=== PATIENT | female | born 1995 | race Caucasian/White ===

== ENCOUNTER 2016-12-09 06:02 | Emergency (ER) | payer OTHER ==
[~2016-12-09] VITALS: Ht 165.1 cm; Wt 95.8 kg
[2016-12-09 06:08] VITALS: TEMP 36.8; Ht 165.1 cm; Wt 95.8 kg
[2016-12-09] MEDS ORDERED: SODIUM CHLORIDE 0.9% 1000ML 500 ML IV ONE (06:21)
[2016-12-09] MEDS ORDERED: ONDANSETRON INJ 2 MG/ML 2 ML VIAL IV STA (06:21)
[2016-12-09] MEDS ORDERED: MoRPHine SULFATE 10 MG/ML CARP/VIAL IV PRN (06:30)
[2016-12-09] MEDS ORDERED: IBUPROFEN 600 MG TAB PO STA (06:41)
--- NOTE | 2016-12-09 06:47 | EMERGENCY ROOM VISIT NOTE ---
History Report prepared by Damian: Andrzej Johnston Under the Supervision of: Dr. Mich Broussard M.D. First contact with patient: 06:36 Chief Complaint: KIDNEY STONE Stated Complaint: KIDNEY STONE MOVED History of Present Illness The patient is a 20 year old female who presents to the Emergency Room with complaints of persistent left sided flank pain that started 3.5 hours ago. The patient notes that the discomfort stated in her flank and radiated to her abdomen. The patient notes she has a history of 2 kidney stones and one has already been analyzed. Upon arriving to the ED, the patient was able to pass a small stone in her urine. She notes that most of her pain has been relieved at this time. She denies any other medical complaints at this time. Source of History: patient Onset: 3.5 hours ago Position: back (left side flank) Timing: other (persistent) Associated Symptoms: + abdominal pain (radiation to abdomen) Note: Denies: any other medical complaints at this time. Review of Systems All systems have been listed, reviewed, and are negative other than those previously mentioned. Please see Additional Medical History Sheet. Past Medical & Surgical Medical Problems: (1) Chronic abdominal pain Family History Cancer FHx: gallbladder disease Kidney disease Kidney stones Social History Smoking Status: Never Smoker Alcohol Use: none Marital Status: single Housing Status: lives with family Occupation Status: student Current/Historical Medications No Active Prescriptions or Reported Meds Allergies Coded Allergies: Pork (Verified Adverse Reaction, Intermediate, ABD CRAMPING, 12/09/16) Uncoded Allergies: CHICKEN (Adverse Reaction, Intermediate, ABD CRAMPING, 11/16/16) DAIRY (LACTOSE INTOLERANT) (Adverse Reaction, Intermediate, GI UPSET, 11/16) Physical Exam Vital Signs Date Time Temp Pulse Resp B/P Pulse Ox O2 Delivery O2 Flow Rate FiO2 12/09/16 09:10 97 16 122/82 97 12/09/16 06:08 36.8 95 18 124/82 98 Room Air Physical Exam GENERAL: Patient awake, alert, oriented x 3. Patient follows commands. Patient does not appear toxic. Patient is adequately hydrated and well- nourished. Patient appears to be in mild to moderate distress. SKIN: No erythema, pallor, cyanosis or rash HEENT: Normal head, pupils equal, reactive to light and accommodation. Neck: Without adenopathy, no neck vein distention. LUNGS: Clear to auscultation. No wheezes, no rales, no rhonchi. HEART: No murmurs. No gallops. No rubs ABDOMEN: No masses, no rebound, no hepatomegaly or splenomegaly. Vague left CVA tenderness. EXTREMITIES: No signs of trauma. No pedal or pretibial edema. No calf or thigh tenderness. NEUROLOGIC: Cranial nerves II-XII within normal limits. No gross motor sensory function deficits. Medical Decision & Procedures Laboratory Results Test 12/09/16 06:19 Urine Color RED Urine Appearance CLOUDY (CLEAR) Urine pH 6.0 (4.5-7.5) Urine Specific Gibson >= 1.030 (1.000-1.030) Urine Protein 2+ (NEG) Urine Glucose (UA) NEG (NEG) Urine Ketones NEG (NEG) Urine Occult Blood 3+ (NEG) Urine Nitrite NEG (NEG) Urine Bilirubin NEG (NEG) Urine Urobilinogen NEG (NEG) Urine Leukocyte Esterase NEG (NEG) Urine RBC >30 /hpf (0-4) Urine WBC 10-30 /hpf (0-5) Urine Epithelial Cells >30 /lpf (0-5) Urine Calcium Oxalate Crystals PRESENT (NONE PRSENT) Urine Bacteria 1+ (NEG) Urine Mucus PRESENT (NONE PRSENT) Laboratory results as stated above per my review. Medications Administered Medications (Trade) Dose Ordered Sig/Alessandra Route Start Time Stop Time Status Last Admin Dose Admin Ibuprofen (Motrin Tab) 600 mg NOW STAT PO 12/09/16 06:41 12/09/16 06:43 DC 12/09/16 07:01 600 MG ED Course 0636: Past medical records reviewed. The patient was evaluated in room A10. A complete history and physical examination was performed. 0621: Ordered Zofran Inj 4 mg IV, NSS 500 ml @ 999 mls/hr IV. 0630: Ordered Morphine Sulfate 6 mg IV/pain. 0641: Ordered Ibuprofen 600 mg PO. 0815: Upon reevaluation, the patient appeared to have improvement of her symptoms. I discussed today's findings with her. She verbalized agreement of the treatment plan. The patient was discharged home. Medical Decision Differential diagnoses include kidney stone, UTI, musculoskeletal pain, and pyelonephritis. The patient is here with flank pain. While here in the ED she passed what appears to be a 1-2 mm stone. The pain has since eased off. A urinalysis was obtained. Please see above. I do not believe the patient requires any further testing at this time. She does not need pain medication other than the ibuprofen. The patient is to drink extra fluids and continue ibuprofen as needed. Impression Primary Impression: Kidney stone Scribe Attestation The scribe's documentation has been prepared under my direction and personally reviewed by me in its entirety. I confirm that the note above accurately reflects all work, treatment, procedures, and medical decision making performed by me. Departure Information Dispostion Home / Self-Care Prescriptions No Active Prescriptions or Reported Meds Referrals Vinnie Benavidez M.D. (PCP) Patient Instructions A Signature Page, ED Stone Renal W Colic, My [facility] Additional Instructions 600 mg ibuprofen every 6 hours as needed for pain. Drink extra fluids. Follow-up with your family physician.
[2016-12-09 08:26] LABS: MANUAL MICROSCOPIC REQUIRED? YES; URINE APPEARANCE CLOUDY (CLEAR); URINE BILIRUBIN NEG (NEG); URINE COLOR RED; URINE NITRITE NEG (NEG); URINE SPECIFIC GRAVITY >= 1.030 (1.000-1.030); UROBILINOGEN NEG (NEG)
[2016-12-09 08:27] LABS: REVIEW REQ? NO
[2016-12-09 08:30] LABS: URINE MUCUS PRESENT (NONE PRSENT); URINE RBC >30 /hpf (0-4)
[2016-12-09 08:31] LABS: URINE BACTERIA 1+ (NEG)
[2016-12-09 08:32] LABS: ZZUR CULT IF INDIC CLEAN CATCH YES
[2016-12-09 09:10] VITALS: BP 122/82; PULSE 97; O2SAT 97
[2017-06-17] MEDS ORDERED: ASPI-390 PO (16:16)
== END 2016-12-09 09:10 | disposition home or self-care (01) ==
LOC: C.EDB 06:03 → C.EDA 09:10
DX: N20.0 Calculus of kidney (principal)

== ENCOUNTER → 2017-03-05 | Outpatient (CLI) | payer OTHER ==
[~2017-03-05] MED LIST: ASPI-390 PO; DOCU-94 PO; FLM4 PO; ONDA4TAB10 SL; OXYC-57 PO
== END | disposition home or self-care (01) ==
LOC: C.PAPS 10:23
PROVIDERS: ATTEND Obstetrics & Gynecology
DX: Z01.419 Encounter for gynecological examination (general) (routine) without abnormal findings (principal)

== ENCOUNTER → 2017-03-05 | Outpatient (CLI) | payer OTHER ==
[2017-03-09 00:01] LABS: CHLAMYDIA TRACH RNA*** NOT DETECTED (NOT DETECTED); GC (NEIS GONORRHOEAE)RNA** NOT DETECTED (NOT DETECTED)
== END | disposition home or self-care (01) ==
LOC: C.LABSPEC 17:46
PROVIDERS: ATTEND Obstetrics & Gynecology
DX: Z11.3 Encounter for screening for infections with a predominantly sexual mode of transmission (principal)

== ENCOUNTER → 2017-03-24 | Outpatient (CLI) | payer OTHER ==
[2017-03-24 18:40] LABS: BASO % 0.5 %; BASO ABS # 0.05 K/uL (0-0.2); COMPLETE YES; EOS % 2.2 %; HEMATOCRIT 41.4 % (37-47); IG% 0.1 %; LYMPH % 36.2 %; LYMPH ABS # 3.32 K/uL (1.2-3.4); MEAN CELL VOLUME 92.2 fL (80-100); MEAN CORPUSCULAR HEMOGLOBIN 31.6 pg (25-34); MEAN CORPUSCULAR HGB CONC 34.3 g/dl (32-36); MEAN PLATELET VOLUME 9.4 fL (7.4-10.4); MONO % 6.1 %; NEUT % 54.9 %; PLATELET COUNT 315 K/uL (130-400); RED BLOOD COUNT 4.49 M/uL (4.2-5.4); WHITE BLOOD COUNT 9.18 K/uL (4.8-10.8)
[2017-03-24 19:08] LABS: BLOOD UREA NITROGEN 16 mg/dl (7-18); CALCIUM 9.3 mg/dl (8.5-10.1); CARBON DIOXIDE 29 mmol/L (21-32); CHLORIDE 109 mmol/L (98-107); CREATININE 0.85 mg/dl (0.60-1.20); GLUCOSE 86 mg/dl (70-99); POTASSIUM 4.3 mmol/L (3.5-5.1); SODIUM 141 mmol/L (136-145)
--- NOTE | 2017-03-24 19:10 | DIAGNOSTIC IMAGING REPORT ---
KUB HISTORY: Generalized abdominal pain. COMPARISON: Abdomen and pelvis CT 10/21/2016. FINDINGS: The bowel gas pattern is unremarkable. There are no dilated loops of small bowel to suggest an obstruction. No renal calculi. However, there is a new 6 mm calcification between the left L1 and L2 transverse processes. This is consistent with a left ureteropelvic junction stone. No pneumoperitoneum or pneumatosis. IMPRESSION: A new 6 mm calcification between the left L1 and L2 transverse processes consistent with a left ureteropelvic junction stone. Electronically signed by: Jeff Wolff M.D. 03/24/2017 7:08 PM Dictated Date/Time: 03/24/2017 7:05 PM
[2017-03-24 19:31] LABS: URINE APPEARANCE CLOUDY (CLEAR); URINE BILIRUBIN NEG (NEG); URINE COLOR YELLOW; URINE EPITHELIAL CELL AUTO >30 /lpf (0-5); URINE NITRITE NEG (NEG); URINE PH 6.5 (4.5-7.5); URINE SPECIFIC GRAVITY 1.027 (1.000-1.030); UROBILINOGEN NEG (NEG); ZZUR CULT IF INDIC CLEAN CATCH YES
[2017-03-24 19:37] LABS: MANUAL MICROSCOPIC REQUIRED? NO; REVIEW REQ? NO
== END | disposition home or self-care (01) ==
LOC: C.LAB 17:34
PROVIDERS: ATTEND Nurse Practitioner
DX: R10.9 Unspecified abdominal pain (principal)

== ENCOUNTER → 2017-03-25 | Outpatient (CLI) | payer OTHER ==
--- NOTE | 2017-03-25 09:47 | DIAGNOSTIC IMAGING REPORT ---
CT OF THE ABDOMEN AND PELVIS WITHOUT CONTRAST CLINICAL HISTORY: Left flank pain. COMPARISON STUDY: CT of the abdomen and pelvis October 21, 2016 and KUB March 24, 2017. TECHNIQUE: Axial images of the abdomen and pelvis were obtained without IV contrast. Images were reviewed in the axial, sagittal, and coronal planes. FINDINGS: There has been minimal distal migration of the 6 mm proximal left ureteral calculus since KUB of March 24, 2017. There is mild left hydronephrosis. A few small right renal calculi measure up to 2 mm. Evaluation of the remainder of the abdomen and pelvis is suboptimal as unenhanced exam. Unenhanced images of liver, spleen, adrenal glands and pancreas are normal. There is no evidence for a bowel obstruction. The appendix is normal. There is no lymphadenopathy or ascites. Skeletal structures are unremarkable. IMPRESSION: 1. Mild left hydronephrosis due to a 6 mm proximal left ureteral calculus. Minimal distal migration of this calculus since KUB of March 24, 2017. 2. Two small right renal calculi which measure up to 2 mm. Electronically signed by: Riley Nguyen M.D. 03/25/2017 9:46 AM Dictated Date/Time: 03/25/2017 9:41 AM
== END | disposition home or self-care (01) ==
LOC: C.CTS 09:24
PROVIDERS: ATTEND Nurse Practitioner
DX: R10.9 Unspecified abdominal pain (principal); Z87.442 Personal history of urinary calculi; N13.30 Unspecified hydronephrosis

== ENCOUNTER 2017-06-14 02:56 | Observation (INO) | payer OTHER ==
[~2017-06-14] VITALS: Ht 165.1 cm; Wt 100.2 kg
[2017-06-14] MEDS ORDERED: ONDANSETRON INJ 2 MG/ML 2 ML VIAL IV STA (03:08)
[2017-06-14] MEDS ORDERED: SODIUM CHLORIDE 0.9% 1000ML 1,000 ML IV STA ×2 (03:08→06:08)
[2017-06-14] MEDS: MoRPHine SULFATE 4 MG/ML 1 ML CARP\\VIAL IV PRN ×2 (03:28→04:04)
--- NOTE | 2017-06-14 03:31 | EMERGENCY ROOM VISIT NOTE ---
History Report prepared by Damian: Shila Corona Under the Supervision of: Dr. Jaswinder Beach D.O. First contact with patient: 03:05 Chief Complaint: KIDNEY STONE Stated Complaint: KIDNEY STONE History of Present Illness The patient is a 21 year old female who presents to the Emergency Room with complaints of persistent left flank pain starting 0200 today. She currently rates her discomfort as a 10/10 in severity. The patient has a history of kidney stones. She did not follow with urology after her first kidney stone. The pain resolved after her first stone. She has not taken anything for her pain. She reports left sided abdominal pain, nausea, and vomiting. She denies any hematuria, fever, or chills. Her last menstrual period was 2 weeks ago. It was later than normal. She denies any other medical problems. Source of History: patient Onset: 199 today Position: other (left flank) Symptom Intensity: 10/10 Quality: other (pain) Timing: other (persistent) Associated Symptoms: + nausea, + vomiting, + abdominal pain, No fevers, No chills Note: Pt denies hematuria. Review of Systems See HPI for pertinent positives & negatives. A total of 10 systems reviewed and were otherwise negative. Past Medical & Surgical Medical Problems: (1) Chronic abdominal pain (2) Hydronephrosis due to obstruction of ureter (3) Kidney stone (4) Renal colic on left side Family History Cancer FHx: gallbladder disease Kidney disease Kidney stones Social History Smoking Status: Never Smoker Alcohol Use: none Marital Status: single Housing Status: lives with family Occupation Status: student Current/Historical Medications No Active Prescriptions or Reported Meds Allergies Coded Allergies: Lactose. (Verified Allergy, Unknown, GI SYMPTOMS, 06/14/17) Pork (Verified Adverse Reaction, Intermediate, ABD CRAMPING, 06/14/17) Uncoded Allergies: CHICKEN (Adverse Reaction, Intermediate, ABD CRAMPING, 11/16/16) Physical Exam Vital Signs Date Time Temp Pulse Resp B/P (MAP) Pulse Ox O2 Delivery O2 Flow Rate FiO2 06/14/17 06:08 93 16 126/83 97 Room Air 06/14/17 03:00 104 24 132/84 98 Room Air Physical Exam GENERAL: Patient is awake, alert, very anxious and uncomfortable appearing, appears to be in significant pain. EYES: The conjunctivae are clear. The pupils are round and reactive. EARS, NOSE, MOUTH AND THROAT: The nose is without any evidence of any deformity. Mucous membranes are moist tongue is midline NECK: The neck is nontender and supple. RESPIRATORY: Normal respiratory effort is noted there is no evidence of wheezing rhonchi or rales CARDIOVASCULAR: Regular rate and rhythm noted there no murmurs rubs or gallops normal S1 normal S2 GASTROINTESTINAL: The abdomen is mildly distended, but soft. Left sided tenderness to palpation, no guarding or rigidity. BACK: No midline tenderness, right CVA tenderness noted to percussion. MUSCULOSKELETAL/EXTREMITIES: There is no evidence of gross deformity full range of motion is noted in the hips and shoulders SKIN: There is no obvious evidence of any rash. There are no petechiae, pallor or cyanosis noted. NEUROLOGIC: Patient is awake alert and oriented x3 Medical Decision & Procedures ER Provider Diagnostic Interpretation: X-ray results as stated below per interpretation by me. KUB X-ray: Increased fecal load noted in the right colon, no signs of obstruction, nonspecific bowel gas pattern, calcification noted over the left psoas adjacent to the L4 L5 disc space. Ultrasound of the retroperitoneum was obtained in the emergency department. Partners reviewed. Preliminary Findings Only See Final Report For Complete Findings US RENAL: Mild left-sided hydronephrosis with the proximal ureter mildly dilated. No obstructing lesion is identified. The mid to distal left ureter was not visualized. Consider CT abdomen and pelvis to exclude obstructing lesion. The right kidney is unremarkable. Bilateral ureteral jets were visualized. The urinary bladder is unremarkable. Radiologist: Preston Glover MD Study ready at 05:06 and initial results transmitted at 05:27 Laboratory Results 06/14/17 03:30 Red Blood Count 4.34, Mean Corpuscular Volume 89.2, Mean Corpuscular Hemoglobin 31.3, Mean Corpuscular Hemoglobin Concent 35.1, Mean Platelet Volume 9.3, Neutrophils (%) (Auto) 47.9, Lymphocytes (%) (Auto) 41.4, Monocytes (%) (Auto) 8.4, Eosinophils (%) (Auto) 1.8, Basophils (%) (Auto) 0.3, Neutrophils # (Auto) 5.47, Lymphocytes # (Auto) 4.71, Monocytes # (Auto) 0.96, Eosinophils # (Auto) 0.20, Basophils # (Auto) 0.03 06/14/17 03:30 Test 06/14/17 03:30 White Blood Count 11.39 K/uL (4.8-10.8) Red Blood Count 4.34 M/uL (4.2-5.4) Hemoglobin 13.6 g/dL (12.0-16.0) Hematocrit 38.7 % (37-47) Mean Corpuscular Volume 89.2 fL (80-100) Mean Corpuscular Hemoglobin 31.3 pg (25-34) Mean Corpuscular Hemoglobin Concent 35.1 g/dl (32-36) Platelet Count 241 K/uL (130-400) Mean Platelet Volume 9.3 fL (7.4-10.4) Neutrophils (%) (Auto) 47.9 % Lymphocytes (%) (Auto) 41.4 % Monocytes (%) (Auto) 8.4 % Eosinophils (%) (Auto) 1.8 % Basophils (%) (Auto) 0.3 % Neutrophils # (Auto) 5.47 K/uL (1.4-6.5) Lymphocytes # (Auto) 4.71 K/uL (1.2-3.4) Monocytes # (Auto) 0.96 K/uL (0.11-0.59) Eosinophils # (Auto) 0.20 K/uL (0-0.5) Basophils # (Auto) 0.03 K/uL (0-0.2) RDW Standard Deviation 38.2 fL (36.4-46.3) RDW Coefficient of Variation 11.8 % (11.5-14.5) Immature Granulocyte % (Auto) 0.2 % Immature Granulocyte # (Auto) 0.02 K/uL (0.00-0.02) Anion Gap 8.0 mmol/L (3-11) Est Creatinine Clear Calc Drug Dose 142.9 ml/min Estimated GFR () 136.5 Estimated GFR (Non- 117.7 BUN/Creatinine Ratio 17.4 (10-20) Calcium Level 9.2 mg/dl (8.5-10.1) Total Bilirubin 0.3 mg/dl (0.2-1) Direct Bilirubin < 0.1 mg/dl (0-0.2) Aspartate Amino Transf (AST/SGOT) 10 U/L (15-37) Alanine Aminotransferase (ALT/SGPT) 25 U/L (12-78) Alkaline Phosphatase 80 U/L (45-117) Total Protein 7.4 gm/dl (6.4-8.2) Albumin 3.8 gm/dl (3.4-5.0) Lipase 270 U/L (73-393) Human Chorionic Gonadotropin, Qual NEG (NEG) Laboratory results per my review. Medications Administered Medications (Trade) Dose Ordered Sig/Alessandra Route Start Time Stop Time Status Last Admin Dose Admin Sodium Chloride 1,000 ml @ 999 mls/hr Q1H1M STAT IV 06/14/17 03:08 06/14/17 04:08 DC 06/14/17 03:28 999 MLS/HR Ondansetron HCl (Zofran Inj) 4 mg NOW STAT IV 06/14/17 03:08 06/14/17 03:10 DC 06/14/17 03:28 4 MG Morphine Sulfate (MoRPHine SULFATE INJ) 4 mg Q15M PRN IV 06/14/17 03:15 06/28/17 03:14 06/14/17 04:04 4 MG Sodium Chloride 1,000 ml @ 999 mls/hr Q1H1M STAT IV 06/14/17 06:08 06/14/17 07:08 DC 06/14/17 06:47 999 MLS/HR ED Course 0307: The patient was evaluated in room A4B. A complete history and physical examination were performed. 0308: Zofran Inj 4 mg IV, NSS 1000 ml @ 999 mls/hr IV. 0315: Morphine Sulfate 4 mg IV. 0539: Upon reevaluation, the patient is stable. I discussed results and treatment plan with her. She verbalizes agreement and understanding. The patient will be evaluated for further management and care. 0546: I discussed the patient's case with Dr. Cruz, [facility] hospitalist. The patient will be evaluated for further management. Medical Decision Prior records/ancillary studies reviewed. Triage Nursing notes reviewed. Additional history obtained from the family. The patient's history was concerning for left flank pain. Differential diagnosis: Etiologies such as renal colic, appendicitis, diverticulitis, mesenteric ischemia, aortic pathology, infections, inflammatory bowel disease, PUD, biliary pathology, UTI, as well as others were entertained. Medication Reconciliation: I attest that I have personally reviewed the patient' s current medications list. Blood pressure screening: Patient was found to have normal blood pressure on screening and does not require follow-up. The patient is a 21-year-old female who presented to the emergency department with severe left flank pain. The patient was seen in our facility 2 times over the last 12 months for similar episodes. She's had 2 CTs since last fall. She was known to have a proximal left ureteral calculus which was 6 millimeters. She states that she was supposed to follow-up with urology but did not follow- up as scheduled. The patient has very severe pain at this time. Ultrasound did show some hydronephrosis on the left and the x-ray I felt was consistent with a calcification along the left so as which could be consistent with the previously noted calculus. The patient was treated with IV fluids IV pain medicine and IV antiemetics. On subsequent reevaluation she was only slightly improved. For this reason I discussed her case with the on-call [facility] hospitalist. They've agreed to evaluate the patient in the emergency department for further management and disposition. I discussed the patient's laboratory and radiographic studies with her. Consults Time Called: 0541 Consulting Physician: Dr. Cruz [facility] hospitalist Returned Call: [phone] I discussed the patient's case with him. The patient will be evaluated for further management. Impression Primary Impression: Kidney stone on left side Additional Impressions: Hydronephrosis, left Intractable pain Scribe Attestation The scribe's documentation has been prepared under my direction and personally reviewed by me in its entirety. I confirm that the note above accurately reflects all work, treatment, procedures, and medical decision making performed by me. Departure Information Dispostion Being Evaluated By Hospitalist Prescriptions No Active Prescriptions or Reported Meds Referrals No Doctor, Assigned (PCP) Patient Instructions My [facility] Problem Qualifiers
[2017-06-14 03:38] LABS: BASO % 0.3 %; BASO ABS # 0.03 K/uL (0-0.2); COMPLETE YES; EOS % 1.8 %; HEMATOCRIT 38.7 % (37-47); IG% 0.2 %; LYMPH % 41.4 %; LYMPH ABS # 4.71 K/uL (1.2-3.4); MEAN CELL VOLUME 89.2 fL (80-100); MEAN CORPUSCULAR HEMOGLOBIN 31.3 pg (25-34); MEAN CORPUSCULAR HGB CONC 35.1 g/dl (32-36); MEAN PLATELET VOLUME 9.3 fL (7.4-10.4); MONO % 8.4 %; NEUT % 47.9 %; PLATELET COUNT 241 K/uL (130-400); RED BLOOD COUNT 4.34 M/uL (4.2-5.4); WHITE BLOOD COUNT 11.39 K/uL (4.8-10.8)
[2017-06-14 04:00] LABS: ALT/SGPT 25 U/L (12-78); AST/SGOT 10 U/L (15-37); BLOOD UREA NITROGEN 13 mg/dl (7-18); BUN/CREATININE RATIO 17.4 (10-20); CALCIUM 9.2 mg/dl (8.5-10.1); CARBON DIOXIDE 26 mmol/L (21-32); CHLORIDE 109 mmol/L (98-107); CREATININE 0.73 mg/dl (0.60-1.20); GLUCOSE 91 mg/dl (70-99); POTASSIUM 3.6 mmol/L (3.5-5.1); SODIUM 143 mmol/L (136-145)
[2017-06-14 04:03] LABS: ALKALINE PHOSPHATASE 80 U/L (45-117)
[2017-06-14 04:22] LABS: PREG INTERNAL NEGATIVE QC NEG CLEAR BACKGROUND; PREG INTERNAL POSITIVE QC POS CONTROL LINE
--- NOTE | 2017-06-14 06:35 | DIAGNOSTIC IMAGING REPORT ---
KUB HISTORY:21 yearsFemaleABDOMINAL PAIN/with history of kidney stones. COMPARISON: Renal ultrasound of same day, KUB radiograph 03/24/2017 TECHNIQUE: KUB radiograph FINDINGS: There is a 6 mm linear opacity within the expected region of the mid left ureter at the level of L4-L5. This appears similar to the previously noted calculus on the left which was present at L2-L3 on study dated 03/24/2017. No additional urolith is identified. Moderate volume of formed stool is seen within the right hemicolon. No fracture. IMPRESSION: 6 mm opacity at the level of L4-L5 likely correlates with a mid left ureteral calculus. The above report was generated using voice recognition software. It may contain grammatical, syntax or spelling errors. Electronically signed by: Chapo Mac M.D. 06/14/2017 6:33 AM Dictated Date/Time: 06/14/2017 6:29 AM
--- NOTE | 2017-06-14 06:50 | DIAGNOSTIC IMAGING REPORT ---
CT SCAN OF THE ABDOMEN AND PELVIS WITHOUT CONTRAST CLINICAL HISTORY: Left flank pain COMPARISON STUDY: 03/25/2017 TECHNIQUE: CT scan of the abdomen and pelvis was performed from the lung bases to the proximal femurs. Images are reviewed in the axial, sagittal, and coronal planes. IV contrast was not administered for this examination. CT DOSE: 764.97 mGy.cm FINDINGS: Lower chest: The heart is normal in size and configuration, without pericardial effusion. The lung bases and pleural spaces are clear. Liver: The unenhanced liver is normal in size, contour, and attenuation. There is no intrahepatic biliary ductal dilatation. Gallbladder: Unremarkable. Spleen: Normal in size and attenuation. Pancreas: Unremarkable. Adrenal glands: Unremarkable. Kidneys: There is a 2.5 located the L3-4 level. Mm nonobstructing upper pole right renal calculus. There is mild left-sided hydronephrosis. There is left-sided perinephric edema. There is left-sided periureteral edema. There is a 4 mm obstructing proximal left ureteral calculus Bowel: There are no transition zones indicate bowel obstruction. The appendix appears normal. There is no acute diverticulitis. Peritoneum: There is no intraperitoneal free air or abdominal ascites. Vasculature: The abdominal aorta is normal in course and caliber. Adenopathy: None. Pelvic viscera: The bladder, and pelvic viscera are unremarkable. Skeletal structures: No destructive osseous lesions are seen. IMPRESSION: 1. 4 mm obstructing proximal left ureteral calculus 2. Nonobstructing 2.5 mm right renal calculus 3. No evidence of bowel obstruction. No evidence of free air. Electronically signed by: Cruz Stewart M.D. 06/14/2017 6:48 AM Dictated Date/Time: 06/14/2017 6:45 AM
--- NOTE | 2017-06-14 06:58 | DIAGNOSTIC IMAGING REPORT ---
EXAMINATION: RENAL ULTRASOUND CLINICAL HISTORY: left flank pain COMPARISON STUDY: CT scan dated 06/14/2017 FINDINGS: The right kidney measures 11 cm. The left kidney measures 10.8 cm. There is mild to moderate left-sided hydronephrosis There are no renal masses. No bladder abnormalities are visualized. Bilateral ureteral jets were visualized. IMPRESSION : Mild to moderate left-sided hydronephrosis. Electronically signed by: Cruz Stewart M.D. 06/14/2017 6:56 AM Dictated Date/Time: 06/14/2017 6:55 AM
[2017-06-14] MEDS ORDERED: MoRPHine SULFATE 4 MG/ML 1 ML CARP\\VIAL IV PRN (07:00)
[2017-06-14] MEDS ORDERED: PROMETHAZINE HCL INJ 12.5 MG in SODIUM CHLORIDE 0.9% 50ML 50 ML IV PRN (07:00)
[2017-06-14] MEDS ORDERED: ACETAMINOPHEN 325 MG TAB PO PRN (07:00)
[2017-06-14] MEDS ORDERED: KETOROLAC TROMETHAMINE 30 MG/ML VIAL IV PRN (07:00)
[2017-06-14] MEDS ORDERED: IV FLUIDS COMPLETED PRN (07:15)
[2017-06-14 07:39] VITALS: BP 126/83; Ht 165.1 cm; Wt 100.2 kg
--- NOTE | 2017-06-14 07:39 | History and Physical ---
History & Physical Date & Time of Service: Jun 14, 2017 at 06:03 Chief Complaint: Kidney Stone Primary Care Physician: Vinnie Benavidez M.D. History of Present Illness Source: patient Hermila Wolfe is a 21 year old female who presents with left sided flank pain and nausea. She has generally felt unwell with a "stomach bug" for the past 2 days and has been less able to keep food down and no nausea. She denies any fevers or chills but has just felt generally unwell with nausea and vomiting. This morning she then woke around 2am with severity 10/10 left flank pain radiating around to her umbilical/suprapubic abdomen. No association with bowel movements or urine. She denies any dysuria or change in frequency or smell. She denies any diarrhea, constipation or GI bleeding. 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 She denies any previous Hx IBD, celiacs, GI bleed/ulcers, GERD. Past Medical/Surgical History Medical Problems: (1) Chronic abdominal pain Status: Chronic (2) Kidney stone Status: Resolved Family History Cancer FHx: gallbladder disease Kidney disease Kidney stones Social History Smoking Status: Never Smoker Smokeless Tobacco Use: No Alcohol Use: none Marital Status: single Housing status: lives alone Occupational Status: student Immunizations History of Influenza Vaccine: Unknown History of Tetanus Vaccine?: Unknown History of Pneumococcal: Unknown History of Hepatitis B Vaccine: Unknown Multi-Drug Resistant Organisms History of MDRO: No Allergies Coded Allergies: Azithromycin (Verified Allergy, Severe, DIARRHEA, 06/18/17) Latex1 -Allergic Contact Dermititis (Verified Allergy, Severe, ITCHY AND MARIE, 06/18/17) Lactose. (Verified Allergy, Unknown, GI SYMPTOMS, 06/18/17) Pork (Verified Adverse Reaction, Intermediate, ABD CRAMPING, 06/18/17) Uncoded Allergies: CHICKEN (Adverse Reaction, Intermediate, ABD CRAMPING, 11/16/16) Home Medications Scheduled Docusate Sodium (Colace), 1 CAP PO BID Ondasetron Odt (Zofran Odt), 4 MG SL Q6H Tamsulosin HCl (Tamsulosin HCl), 0.4 MG PO HS Scheduled PRN Zahlswa-Bsaailordwqfr-Hyikwkoj (Excedrin Migraine), 1 TAB PO BID PRN for HEADACHES Review of Systems Constitutional: No fever, No chills Eyes: No worsening of vision ENT: No hearing loss Respiratory: No cough, No sputum, No shortness of breath Abdomen: + nausea, + vomiting Genitourinary - Female: No dysuria, No urinary frequency, No urinary urgency, No urinary retention, No hematuria Endocrine: + fatigue Physical Exam Vital Signs Date Time Temp Pulse Resp B/P (MAP) Pulse Ox O2 Delivery O2 Flow Rate FiO2 06/14/17 03:00 104 24 132/84 98 Room Air General Appearance: WD/WN, no apparent distress, + obese Eyes: normal inspection (pupils equal) Neck: supple, no JVD Respiratory/Chest: chest non-tender, lungs clear, normal breath sounds, no respiratory distress, no accessory muscle use Cardiovascular: regular rate, rhythm, no edema, no murmur, normal peripheral pulses Abdomen/GI: normal bowel sounds, non tender, soft Back: + left CVA tenderness Extremities/Musculoskelatal: no calf tenderness, normal capillary refill, no pedal edema Neurologic/Psych: director foundation II-XII nml as tested (no facial droop), no motor/sensory deficits (grossly intact), alert, oriented x 3 Skin: normal color, warm/dry, no rash Diagnostics Laboratory Results Results Past 24 Hours Test 06/14/17 03:30 Range/Units White Blood Count 11.39 4.8-10.8 K/uL Red Blood Count 4.34 4.2-5.4 M/uL Hemoglobin 13.6 12.0-16.0 g/dL Hematocrit 38.7 37-47 % Mean Corpuscular Volume 89.2 80-100 fL Mean Corpuscular Hemoglobin 31.3 25-34 pg Mean Corpuscular Hemoglobin Concent 35.1 32-36 g/dl Platelet Count 241 130-400 K/uL Mean Platelet Volume 9.3 7.4-10.4 fL Neutrophils (%) (Auto) 47.9 % Lymphocytes (%) (Auto) 41.4 % Monocytes (%) (Auto) 8.4 % Eosinophils (%) (Auto) 1.8 % Basophils (%) (Auto) 0.3 % Neutrophils # (Auto) 5.47 1.4-6.5 K/uL Lymphocytes # (Auto) 4.71 1.2-3.4 K/uL Monocytes # (Auto) 0.96 0.11-0.59 K/uL Eosinophils # (Auto) 0.20 0-0.5 K/uL Basophils # (Auto) 0.03 0-0.2 K/uL RDW Standard Deviation 38.2 36.4-46.3 fL RDW Coefficient of Variation 11.8 11.5-14.5 % Immature Granulocyte % (Auto) 0.2 % Immature Granulocyte # (Auto) 0.02 0.00-0.02 K/uL Sodium Level 143 136-145 mmol/L Potassium Level 3.6 3.5-5.1 mmol/L Chloride Level 109 98-107 mmol/L Carbon Dioxide Level 26 21-32 mmol/L Anion Gap 8.0 3-11 mmol/L Blood Urea Nitrogen 13 7-18 mg/dl Creatinine 0.73 0.60-1.20 mg/dl Est Creatinine Clear Calc Drug Dose 142.9 ml/min Estimated GFR () 136.5 Estimated GFR (Non- 117.7 BUN/Creatinine Ratio 17.4 10-20 Random Glucose 91 70-99 mg/dl Calcium Level 9.2 8.5-10.1 mg/dl Total Bilirubin 0.3 0.2-1 mg/dl Direct Bilirubin < 0.1 0-0.2 mg/dl Aspartate Amino Transf (AST/SGOT) 10 15-37 U/L Alanine Aminotransferase (ALT/SGPT) 25 12-78 U/L Alkaline Phosphatase 80 45-117 U/L Total Protein 7.4 6.4-8.2 gm/dl Albumin 3.8 3.4-5.0 gm/dl Lipase 270 73-393 U/L Human Chorionic Gonadotropin, Qual NEG NEG Diagnostic Radiology EXAMINATION: RENAL ULTRASOUND CLINICAL HISTORY: left flank pain COMPARISON STUDY: CT scan dated 06/14/2017 FINDINGS: The right kidney measures 11 cm. The left kidney measures 10.8 cm. There is mild to moderate left-sided hydronephrosis There are no renal masses. No bladder abnormalities are visualized. Bilateral ureteral jets were visualized. IMPRESSION : Mild to moderate left-sided hydronephrosis. Electronically signed by: Cruz Stewart M.D. 06/14/2017 6:56 AM Dictated Date/Time: 06/14/2017 6:55 AM KUB HISTORY:21 yearsFemaleABDOMINAL PAIN/with history of kidney stones. COMPARISON: Renal ultrasound of same day, KUB radiograph 03/24/2017 TECHNIQUE: KUB radiograph FINDINGS: There is a 6 mm linear opacity within the expected region of the mid left ureter at the level of L4-L5. This appears similar to the previously noted calculus on the left which was present at L2-L3 on study dated 03/24/2017. No additional urolith is identified. Moderate volume of formed stool is seen within the right hemicolon. No fracture. IMPRESSION: 6 mm opacity at the level of L4-L5 likely correlates with a mid left ureteral calculus. The above report was generated using voice recognition software. It may contain grammatical, syntax or spelling errors. Electronically signed by: Chapo Mac M.D. 06/14/2017 6:[address] SCAN OF THE ABDOMEN AND PELVIS WITHOUT CONTRAST CLINICAL HISTORY: Left flank pain COMPARISON STUDY: 03/25/2017 TECHNIQUE: CT scan of the abdomen and pelvis was performed from the lung bases to the proximal femurs. Images are reviewed in the axial, sagittal, and coronal planes. IV contrast was not administered for this examination. CT DOSE: 764.97 mGy.cm FINDINGS: Lower chest: The heart is normal in size and configuration, without pericardial effusion. The lung bases and pleural spaces are clear. Liver: The unenhanced liver is normal in size, contour, and attenuation. There is no intrahepatic biliary ductal dilatation. Gallbladder: Unremarkable. Spleen: Normal in size and attenuation. Pancreas: Unremarkable. Adrenal glands: Unremarkable. Kidneys: There is a 2.5 located the L3-4 level. Mm nonobstructing upper pole right renal calculus. There is mild left-sided hydronephrosis. There is left-sided perinephric edema. There is left-sided periureteral edema. There is a 4 mm obstructing proximal left ureteral calculus Bowel: There are no transition zones indicate bowel obstruction. The appendix appears normal. There is no acute diverticulitis. Peritoneum: There is no intraperitoneal free air or abdominal ascites. Vasculature: The abdominal aorta is normal in course and caliber. Adenopathy: None. Pelvic viscera: The bladder, and pelvic viscera are unremarkable. Skeletal structures: No destructive osseous lesions are seen. IMPRESSION: 1. 4 mm obstructing proximal left ureteral calculus 2. Nonobstructing 2.5 mm right renal calculus 3. No evidence of bowel obstruction. No evidence of free air. Electronically signed by: Cruz Stewart M.D. 06/14/2017 6:48 AM Dictated Date/Time: 06/14/2017 6:45 AM Impression Assessment and Plan 21 year old female with prior left kidney stones presents with left flank pain radiating to her suprapubic area. Left nephrolithiasis 4mm obstructing stone with mild hydronephrosis - IV fluids - Toradol and morphine for pain relief. - Consult urology Left sided CVA tenderness, perinephric stranding on CT, mildly elevated WBC, generally feels unwell/sick/nauseous - suspected complicated UTI - cover for infection with ciprofloxacin, urine analysis and micro pending at this time VTE Prophylaxis - young age. Low risk. SCD + TEDs only Resuscitation - Full Disposition - observation status to med/surg Attending Addendum: I have physically seen and examined this patient, have supervised the medical residents activities, and agree with the H&P as noted above with the following exceptions: NONE The patient is awake, well-developed and adequately nourished, alert and oriented 3, normocephalic and atraumatic, lying in bed and in no acute distress. HEENT--PERRL, EOMI, mucous membranes and oropharynx dry. Neck--supple, no JVD or bruits, thyroid normal, trachea midline, no adenopathy. Heart--normal S1 and S2, no extra beats, no murmurs, rubs or gallops. Lungs--clear bilaterally with good air movement, no respiratory distress, no accessory muscle use. Abdomen--normal bowel sounds and soft, left flank tenderness toward left lower quadrant. Nondistended, no hernias or masses, no organomegaly. Extremities--no cyanosis, clubbing or edema. There are good distal pulses b/l. Dermatologic--normal skin turgor, normal color, warm and dry, no abnormal lymph nodes, no rash. Neurologic--cranial nerves II through XII grossly intact, motor and sensory examination normal. Rheumatologic--normal range of motion, nontender, muscles and joints. Psychiatric--normal affect. Assessment and Plan: 1. 4 mm left ureteral obstructing stone with mild left hydronephrosis--the patient will be admitted to the medical surgical floor. Place on normal saline with potassium chloride 20 mEq at 100 ML's per hour. Toradol 30 mg IV every 6 hours when necessary. Morphine sulfate 2 mg IV every 4 hours when necessary. Follow urine culture and sensitivity report Cipro 40 mg IV every 12 hours. Nothing by mouth after midnight except meds. Consult urology. Level of Care Med/Surg Advanced Directives Existing Advance Directive: No Existing Living Will: No Existing Power of Boat Washer: No Resuscitation Status FULL RESUSCITATION VTE Prophylaxis VTE Risk Assessment Done? Y/N: Yes Risk Level: Very Low Given or contraindicated: Treatment not indicated Social Service Consult None Apply Additional Copies To Vinnie Benavidez M.D. Resident Tracking Resident Involvement: Resident Care Provided Care Provided: Adult ED
[2017-06-14 08:00] VITALS: BP 115/76; PULSE 92; TEMP 36.6; O2SAT 97
[2017-06-14] MEDS: SODIUM CHLORIDE 0.9% 1000ML 1,000 ML IV SCH ×3 (09:22→18:44)
[2017-06-14] MEDS: CIPROFLOXACIN / D5W 400 MG in PREMIXED IN D5W 200 ML IV SCH ×2 (09:23→22:17)
[2017-06-14 09:57] LABS: URINE APPEARANCE CLEAR (CLEAR); URINE BILIRUBIN NEG (NEG); URINE COLOR YELLOW; URINE EPITHELIAL CELL AUTO >30 /lpf (0-5); URINE NITRITE NEG (NEG); URINE SPECIFIC GRAVITY 1.016 (1.000-1.030); UROBILINOGEN NEG (NEG); ZZUR CULT IF INDIC CLEAN CATCH YES
[2017-06-14 10:13] LABS: MANUAL MICROSCOPIC REQUIRED? NO; REVIEW REQ? YES
[2017-06-14] MEDS ORDERED: TAMSULOSIN HCL 0.4 MG CAP PO ONE (10:26)
--- NOTE | 2017-06-14 10:49 | Urology Consultation ---
History General Date of Service: Jun 14, 2017. Chief Complaint: left flank pain Primary Care Physician: Vinnie Benavidez M.D. Pt seen a urologist before?: No History of Present Illness 21 yo female presents to [facility] with c/o severe left flank pain. The pain started 2 days ago, but became severe overnight, and was accompanied by n/v. She denies any f/c, dysuria, or hematuria. CT and KUB shows a 6mm left ureteral stone. The pt does have a hx of passing stones since the age of 14. She has never seen a urologist in the past or had a procedure for the stones. She reports her pain is currently a 0/10. She is afebrile. Cr is normal. White count is 11.39. Imaging Imaging: CT, KUB, Ultrasound Laboratory Last 24 Hours Test 06/14/17 03:30 06/14/17 07:50 White Blood Count 11.39 K/uL Red Blood Count 4.34 M/uL Hemoglobin 13.6 g/dL Hematocrit 38.7 % Mean Corpuscular Volume 89.2 fL Mean Corpuscular Hemoglobin 31.3 pg Mean Corpuscular Hemoglobin Concent 35.1 g/dl Platelet Count 241 K/uL Mean Platelet Volume 9.3 fL Neutrophils (%) (Auto) 47.9 % Lymphocytes (%) (Auto) 41.4 % Monocytes (%) (Auto) 8.4 % Eosinophils (%) (Auto) 1.8 % Basophils (%) (Auto) 0.3 % Neutrophils # (Auto) 5.47 K/uL Lymphocytes # (Auto) 4.71 K/uL Monocytes # (Auto) 0.96 K/uL Eosinophils # (Auto) 0.20 K/uL Basophils # (Auto) 0.03 K/uL RDW Standard Deviation 38.2 fL RDW Coefficient of Variation 11.8 % Immature Granulocyte % (Auto) 0.2 % Immature Granulocyte # (Auto) 0.02 K/uL Sodium Level 143 mmol/L Potassium Level 3.6 mmol/L Chloride Level 109 mmol/L Carbon Dioxide Level 26 mmol/L Anion Gap 8.0 mmol/L Blood Urea Nitrogen 13 mg/dl Creatinine 0.73 mg/dl Est Creatinine Clear Calc Drug Dose 142.9 ml/min Estimated GFR () 136.5 Estimated GFR (Non- 117.7 BUN/Creatinine Ratio 17.4 Random Glucose 91 mg/dl Calcium Level 9.2 mg/dl Total Bilirubin 0.3 mg/dl Direct Bilirubin < 0.1 mg/dl Aspartate Amino Transf (AST/SGOT) 10 U/L Alanine Aminotransferase (ALT/SGPT) 25 U/L Alkaline Phosphatase 80 U/L Total Protein 7.4 gm/dl Albumin 3.8 gm/dl Lipase 270 U/L Human Chorionic Gonadotropin, Qual NEG Urine Color YELLOW Urine Appearance CLEAR Urine pH 7.0 Urine Specific [place] 1.016 Urine Protein NEG Urine Glucose (UA) NEG Urine Ketones NEG Urine Occult Blood 2+ Urine Nitrite NEG Urine Bilirubin NEG Urine Urobilinogen NEG Urine Leukocyte Esterase SMALL Urine WBC (Auto) 5-10 /hpf Urine RBC (Auto) >30 /hpf Urine Hyaline Casts (Auto) 1-5 /lpf Urine Epithelial Cells (Auto) >30 /lpf Urine Bacteria (Auto) 1+ Urine Renal Epithelial Cells /lpf Urine Crystals CALCIUM OXALATE Problem List Medical Problems: (1) Hydronephrosis, left Status: Acute (2) Intractable pain Status: Acute (3) Kidney stone Status: Acute (4) Kidney stone on left side Status: Acute Past History kidney stones Past Surgical History: no surgical history Family History Cancer FHx: gallbladder disease Kidney disease Kidney stones Social History Smoking: non-smoker Marital status: single Occupation status: employed Allergies Coded Allergies: Lactose. (Verified Allergy, Unknown, GI SYMPTOMS, 06/14/17) Pork (Verified Adverse Reaction, Intermediate, ABD CRAMPING, 06/14/17) Uncoded Allergies: CHICKEN (Adverse Reaction, Intermediate, ABD CRAMPING, 11/16/16) Medications Home Medications: Home Meds and Scripts Medications Dose Route/Sig Max Daily Dose Days Date Category No Active Prescriptions or Reported Medications Rx Inpatient Medications: Current Inpatient Medications Medications (Trade) Dose Ordered Sig/Alessandra Route Start Time Stop Time Status Last Admin Dose Admin Morphine Sulfate (MoRPHine SULFATE INJ) 4 mg Q15M PRN IV 06/14/17 03:15 06/28/17 03:14 06/14/17 04:04 4 MG Acetaminophen (Tylenol Tab) 650 mg Q4H PRN PO 06/14/17 07:00 07/14/17 06:59 Ciprofloxacin/ Dextrose 400 mg/ Prmx 200 ml @ 100 mls/hr Q12 IV 06/14/17 09:00 06/24/17 08:59 06/14/17 09:23 100 MLS/HR Morphine Sulfate (MoRPHine SULFATE INJ) 4 mg Q2H PRN IV 06/14/17 07:00 06/28/17 06:59 Promethazine HCl 12.5 mg/Sodium Chloride 50.5 ml @ 204 mls/hr Q6H PRN IV 06/14/17 07:00 07/14/17 06:59 Miscellaneous (Iv Fluids Completed) 1 ea PRN PRN N/A 06/14/17 07:15 06/14/18 07:14 Sodium Chloride 1,000 ml @ 200 mls/hr Q5H IV 06/14/17 09:00 07/14/17 08:59 06/14/17 09:22 200 MLS/HR Review of Systems Review of Systems Constitutional: No fever, No chills Eyes: No double vision Neurological: No dizzy Endocrine: No excessive thirst Gastrointestinal: No abdominal pain, No nausea, No vomiting Cardiovascular: No chest pain Respiratory: No shortness of breath Skin: No rash Musculoskeletal: No back pain Female : No painful urination, No blood in urine Physical Exam Vital Signs: Vital Signs Past 12 Hours Date Time Temp Pulse Resp B/P (MAP) Pulse Ox O2 Delivery O2 Flow Rate FiO2 06/14/17 08:00 36.6 92 16 115/76 (89) 97 Room Air 06/14/17 08:00 Room Air 06/14/17 07:56 93 16 127/82 97 06/14/17 07:39 16 126/83 Room Air 06/14/17 06:08 93 16 126/83 97 Room Air 06/14/17 03:00 104 24 132/84 98 Room Air Physical Exam: General Appearance: no apparent distress Eyes: bilateral eyes normal inspection ENT: hearing grossly normal Neck: no JVD Respiratory/Chest: no respiratory distress, no accessory muscle use Cardiovascular: no JVD Extremities: normal inspection Neurologic/Psychiatric: alert, normal mood/affect, oriented x 3 Skin: normal color Assessment & Plan Assessment & Plan A/P: 6mm left ureteral stone AFVSS. No evidence of sepsis. Will plan a trial of passage today with MET. Supportive management with IVF, pain control, and Flomax. Will start Flomax. Monitor orthostatic BPs. Encourage fluids. Strain all urine. UC&S pending. Will provide a diet today. NPO after midnight in the event she needs stent placement tomorrow. Hopeful her stone can be managed as an outpatient with ESWL if pain remains controlled. Will d/c Toradol and have her avoid any NSAIDS in the event she can have ESWL this Wednesday. Thanks for the consult. Will continue to follow along with primary service at this time.
[2017-06-14 11:37] VITALS: BP 120/86; PULSE 89; TEMP 36.6; O2SAT 98
[2017-06-14 11:38] VITALS: BP_SYST 120; BP_SYST 130; BP_SYST 138; BP_DIAS 76; BP_DIAS 86; BP_DIAS 88; PULSE 99
[2017-06-14 15:50] VITALS: BP 133/86; PULSE 91; TEMP 36.6; O2SAT 96
[2017-06-14] MEDS ORDERED: TAMSULOSIN HCL 0.4 MG CAP PO SCH (21:00)
[2017-06-14 22:47] VITALS: BP 127/98; PULSE 88; TEMP 36.4; O2SAT 97
[2017-06-15] MEDS: SODIUM CHLORIDE 0.9% 1000ML 1,000 ML IV SCH ×3 (04:33→09:55)
--- NOTE | 2017-06-15 07:41 | Progress Note ---
Subjective Date of Service: Jun 15, 2017. Subjective Pt evaluation today including: conversation w/ patient, chart review, lab review Voiding: no voiding problems 21 yo female with left ureteral stone. Pt denies pain overnight. Denies dysuria or hematuria. + some nausea. Labs pending this AM. UC&S pending. KUB pending this morning. Problem List Medical Problems: (1) Hydronephrosis, left Status: Acute (2) Intractable pain Status: Acute (3) Kidney stone Status: Acute (4) Kidney stone on left side Status: Acute Review of Systems Constitutional: No fever, No chills Respiratory: No shortness of breath Cardiac: No chest pain Abdomen: + nausea, No pain, No vomiting Female : No dysuria, No hematuria Heme: No abnormal bleeding/bruising Objective Vital Signs Date Time Temp Pulse Resp B/P (MAP) Pulse Ox O2 Delivery O2 Flow Rate FiO2 06/15/17 00:00 Room Air 06/14/17 22:47 36.4 88 16 127/98 (108) 97 Room Air 06/14/17 16:40 Room Air 06/14/17 15:50 36.6 91 16 133/86 (102) 96 Room Air 06/14/17 11:38 99 19 120/86 (97) 130/76 (94) 138/88 (105) 06/14/17 11:37 36.6 89 18 120/86 (97) 98 Room Air 06/14/17 08:00 36.6 92 16 115/76 (89) 97 Room Air 06/14/17 08:00 Room Air 06/14/17 07:56 93 16 127/82 97 06/14/17 07:39 16 126/83 Room Air Physical Exam General Appearance: no apparent distress Eyes: normal inspection ENT: hearing grossly normal Neck: no JVD Respiratory/Chest: no respiratory distress, no accessory muscle use Cardiovascular: no JVD Extremities: normal inspection Neurologic/Psychiatric: alert, normal mood/affect, oriented x 3 Skin: normal color Laboratory Results Last 24 Hours Test 06/14/17 07:50 06/15/17 04:44 Urine Color YELLOW Urine Appearance CLEAR Urine pH 7.0 Urine Specific [place] 1.016 Urine Protein NEG Urine Glucose (UA) NEG Urine Ketones NEG Urine Occult Blood 2+ Urine Nitrite NEG Urine Bilirubin NEG Urine Urobilinogen NEG Urine Leukocyte Esterase SMALL Urine WBC (Auto) 5-10 /hpf Urine RBC (Auto) >30 /hpf Urine Hyaline Casts (Auto) 1-5 /lpf Urine Epithelial Cells (Auto) >30 /lpf Urine Bacteria (Auto) 1+ Urine Renal Epithelial Cells /lpf Urine Crystals CALCIUM OXALATE Assessment and Plan A/P: Left ureteral stone AFVSS. Pain currently controlled. No evidence of sepsis. Will avoid stent placement for now, and plan for left ESWL this 06-18. Avoid any NSAIDS, fish oil, or other anticoagulants until surgery. Recommend d/c home on Flomax, Percocet, Colace, and Zofran. Encourage fluids. Strain all urine. Will plan for outpatient f/u with me tomorrow at 3pm at [address] [place] [address] Dr. Rae for allowing us to participate in this pt's care.
[2017-06-15 07:50] VITALS: BP 120/94; PULSE 85; TEMP 36.7; O2SAT 97
--- NOTE | 2017-06-15 08:42 | DIAGNOSTIC IMAGING REPORT ---
KUB HISTORY: 21 years Female left ureteral stone COMPARISON: CT abdomen and pelvis 06/14/2017 TECHNIQUE: KUB radiograph FINDINGS: 7 mm calculus of the mid left ureter projecting over the L3 left transverse process is unchanged from comparison CT. No additional urolith is identified. Bowel gas pattern is nonobstructive. No fracture. IMPRESSION: Unchanged position of 7 mm calculus within the mid left ureter. The above report was generated using voice recognition software. It may contain grammatical, syntax or spelling errors. Electronically signed by: Chapo Mac M.D. 06/15/2017 8:40 AM Dictated Date/Time: 06/15/2017 8:39 AM
[2017-06-15] MEDS: CIPROFLOXACIN / D5W 400 MG in PREMIXED IN D5W 200 ML IV SCH (09:20)
--- NOTE | 2017-06-15 09:21 | Discharge Instructions ---
Discharge Instructions Date of Service Jun 15, 2017. Admission Reason for Admission: Hydronephrosis Due To Obstruction Of Ureter.. Discharge Discharge Diagnosis / Problem: Hydronephrosis Neprolithiasis Discharge Goals Goal(s): Improve function Activity Recommendations Activity Limitations: resume your previous activity Driving or Machine Use: no driving while taking percocet . Instructions / Follow-Up Instructions / Follow-Up Ayala RYDER 3 Pm tomorrow. [address] [place] [address] Current Hospital Diet Patient's current hospital diet: Regular Diet Discharge Diet Recommended Diet: Regular Diet Pending Studies Studies pending at discharge: no Medical Emergencies . Who to Call and When: Medical Emergencies: If at any time you feel your situation is an emergency, please call 911 immediately. . Non-Emergent Contact Non-Emergency issues call your: Urologist . . "Provider Documentation" section prepared by Phani Jerez. . VTE Core Measure Inpt VTE Proph given/why not?: Treatment not indicated
[2017-06-15] MEDS ORDERED: ONDA4TAB10 SL (09:26)
[2017-06-15] MEDS ORDERED: FLM4 PO (09:26)
[2017-06-15] MEDS ORDERED: OXYC-57 PO (09:26)
[2017-06-15] MEDS ORDERED: DOCU-94 PO (09:26)
[2017-06-15 09:32] LABS: BASO % 0.5 %; BASO ABS # 0.03 K/uL (0-0.2); COMPLETE YES; EOS % 2.2 %; HEMATOCRIT 37.1 % (37-47); IG% 0.2 %; LYMPH ABS # 3.05 K/uL (1.2-3.4); MEAN CELL VOLUME 90.5 fL (80-100); MEAN CORPUSCULAR HGB CONC 34.2 g/dl (32-36); MEAN PLATELET VOLUME 9.3 fL (7.4-10.4); MONO % 6.9 %; NEUT % 41.2 %; PLATELET COUNT 212 K/uL (130-400); WHITE BLOOD COUNT 6.23 K/uL (4.8-10.8)
[2017-06-15 10:05] LABS: BUN/CREATININE RATIO 8.1 (10-20); CALCIUM 8.8 mg/dl (8.5-10.1); CREATININE 0.75 mg/dl (0.60-1.20); POTASSIUM 3.8 mmol/L (3.5-5.1)
[2017-06-15 10:24] VITALS: BP 120/94; PULSE 85; TEMP 36.7; O2SAT 97
[2017-06-15 10:40] VITALS: O2SAT 97
[2017-06-17] MEDS ORDERED: ASPI-390 PO (16:16)
--- NOTE | 2017-07-01 01:03 | DISCHARGE SUMMARY ---
Please see dictated H&P for full details. The patient is a 21-year-old who presented with left-sided flank pain and nausea, had been less able to keep anything down as far as food. She awoke on the morning of admission at 2:00 a.m. with severe left-sided flank pain radiating around to her umbilical and suprapubic abdomen. She had a white count of 11.[address] of the abdomen showed mild to moderate left-sided hydronephrosis. KUB showed a 6 mm opacity at the level of L4-L5, likely correlates with mid left ureteral calculus. CT of the abdomen showed a 2.5 mm nonobstructing upper pole right renal calculus. There was mild left-sided hydronephrosis. There was left-sided perinephric edema, left-sided periureteral edema, and there was a 4 mm obstructing proximal left ureteral calculus. No evidence for bowel obstruction. No evidence of free air. She was given Toradol and morphine for pain and urology was consulted. She was seen by Ayala Parisi, recommended Flomax, straining all her urine, and urine culture, C&S. The patient's symptoms improved. She was discharged with Percocet and recommended to follow up with urology as an outpatient 1 day after discharge at 3:00 p.m. Urged fluids and strain all urine. Lithotripsy will be attempted on 06/18/2017, for her left ureteral stone. The patient was in agreement with the plan of care and was discharged in stable condition to home on Colace 100 mg twice a day, ondansetron 4 mg sublingual q. 6 as needed, and Flomax 0.4 at bedtime. Time spent reviewing the chart, discussion with the patient on the date of discharge 31 minutes.
== END 2017-06-15 13:05 | disposition home or self-care (01) ==
LOC: C.EDB 02:58 → C.MSN 06:58 → ENRESERV 07:18
PROVIDERS: ADMIT Hospitalist; ATTEND Hospitalist
DX: N20.1 Calculus of ureter (principal); Z87.442 Personal history of urinary calculi; Z84.1 Family history of disorders of kidney and ureter

== ENCOUNTER → 2017-06-18 | Day surgery (SDC) | payer OTHER ==
[2017-06-17 16:17] VITALS: Ht 165.1 cm; Wt 100.0 kg
[~2017-06-18] VITALS: Ht 165.1 cm; Wt 100.0 kg
[~2017-06-18] MED LIST changes: +ACETAMINOPHEN 325 MG TAB PO PRN; +ATROPINE SULFATE 0.1 MG/ML 5ML SYR IV PRN; +CIPROFLOXACIN / D5W 400 MG IV SCH; +DEXAMETHASONE SOD INJ 4 MG/ML VIAL IV PRN; +DEXAMETHASONE SOD INJ 4 MG/ML VIAL ONE; +EpHEDrine SULFATE INJ 50 MG/ML AMP IV PRN; +FENTANYL CITRATE INJ 50 MCG/1 ML 2 ML VIAL IV PRN; +FENTANYL CITRATE INJ 50 MCG/1 ML 2 ML VIAL ONE; +KETOROLAC TROMETHAMINE 30 MG/ML VIAL IV. PRN; +LABETALOL HCL IV 5 MG/ML 20ML IV PRN; +LACTATED RINGER'S 1000ML 1,000 ML IV SCH; +LIDOCAINE 2% 20 MG/ML 5ML SYR ONE; +METOCLOPRAMIDE HCL INJ 5 MG/ML 2 ML VIAL IV PRN; +MIDAZOLAM HCL 1 MG/ML 2ML VIAL ONE; +MoRPHine SULFATE 10 MG/ML CARP/VIAL IV PRN; +ONDANSETRON INJ 2 MG/ML 2 ML VIAL IV PRN; +ONDANSETRON INJ 2 MG/ML 2 ML VIAL ONE; +OXYCODONE/ACETAMINOPHEN 5-325 TAB PO PRN; +PHENYLEPHRINE 100MCG/ML 5ML SYR IV PRN; +PROPOFOL IV EMULSION 10 MG/ML 20 ML VIAL IV ONE; +SODIUM CHLORIDE 0.9% 1000ML 1,000 ML IV SCH
--- NOTE | 2017-06-18 08:44 | DIAGNOSTIC IMAGING REPORT ---
KUB CLINICAL HISTORY: 21 years-old Female presenting with nephrolithiasis. TECHNIQUE: Single supine view of the abdomen was obtained. COMPARISON: 06/15/2017. FINDINGS: Previously noted 7 mm calculus along the course of the left ureter at the level of L3 is unchanged from prior. Presence of moderate stool burden in the right colon degrades evaluation for right nephrolithiasis. Within this limitation, no other calcification in the abdomen. Nonobstructive bowel gas pattern. Osseous structures normal. IMPRESSION: 1. No change in the left ureteral calculus at the level of L3. Electronically signed by: Duane Stephens M.D. 06/18/2017 8:43 AM Dictated Date/Time: 06/18/2017 8:41 AM
--- NOTE | 2017-06-18 11:09 | History & Physical Bridge Note ---
H&P Re-Evaluation Bridge Note: I have examined the patient, reviewed the History & Physical and in the interval since the performance of the History & Physical I have noted the following changes of clinical significance: No changes noted
--- NOTE | 2017-06-18 11:36 | Discharge Instructions-[facility] ---
Discharge Instructions Date of Service Jun 18, 2017. Visit Reason for Visit: Stones Discharge Discharge Diagnosis / Problem: stones Discharge Goals Goal(s): Decrease discomfort, Improve function, Increase independence, Improve disease control, Prevent Disease Progression Activity Recommendations Activity Limitations: resume your previous activity Lifting Limitations: none Exercise/Sports Limitations: none May Resume Sexual Activity: when tolerated Shower/Bathe: no limitations Driving or Machine Use: resume 1 day after discharge Anesthesia . Post Anesthesia Instructions: If you have had General Anesthesia or IV Sedation: * Do not drive today. * Resume driving when surgeon permits. * Do not make important decisions or sign legal documents today. * Call surgeon for: 1. Temperature elevations greater than 101 degrees F. 2. Uncontrollable pain. 3. Excessive bleeding. 4. Persistent nausea and vomiting. 5. Medication intolerance (nausea, vomiting or rash). * For nausea and vomiting use only clear liquids such as: tea, soda, bouillon until nausea subsides, then gradually increase diet as tolerated. * If you have any concerns or questions, call your surgeon's office. If physician is unavailable and it is an emergency, call 911 or go to the nearest emergency room. . Instructions / Follow-Up Instructions / Follow-Up Please keep your previously scheduled postoperative appointment Diet Recommendations Home Diet: no limitations, resume previous diet Pending Studies Studies pending at discharge: no Medical Emergencies . Who to Call and When: Medical Emergencies: If at any time you feel your situation is an emergency, please call 911 immediately. . Non-Emergent Contact Non-Emergency issues call your: Urologist Call Non-Emergent contact if: you have a fever, temperature is above 101.5, your pain is not controlled, your pain is worsening . . "Provider Documentation" section prepared by Alexandro Coyle. .
--- NOTE | 2017-06-18 11:38 | [facility] Operative Report ---
Operative Report Operative Date Jun 18, 2017. Pre-Operative Diagnosis Left ureteral stone Post-Operative Diagnosis Left ureteral stone Procedure(s) Performed Left extra corporeal shock wave lithotripsy Surgeon Yajaira Steele Wind Development Director Surgeon(s) none Estimated Blood Loss 0 Findings Left ureteral stone Drains none Anesthesia Gen. Complication(s) None Disposition Recovery Room / PACU (stable) Indications Symptomatic left ureteral stone Description of Procedure Hermila Wolfe was identified in the preoperative holding area, appropriate informed consent was reviewed and completed and the patient was transported to the operating suite. Upon arrival appropriate preoperative antibiotics were administered and general anesthesia induced. The patient was placed in supine position and the stone was localized under fluoroscopy. A total of 2500 shocks were delivered to the stone. There appeared to be good fragmentation of the stone. Details of this procedure can be found on the [facility] information sheet. At the conclusion of the case the patient was extubated and taken to the PACU in stable condition. There were no complications. I attest to the content of the Intraoperative Record and any orders documented therein. Any exceptions are noted below.
[2017-06-18 13:22] VITALS: TEMP 36.5
--- NOTE | 2017-06-18 13:24 | Anesthesia Progress Nt - [facility] ---
Anesthesia Post Op Note Date & Time Jun 18, 2017 at 13:24 Vital Signs Pain Intensity: 1 Vital Signs Past 12 Hours Date Time Temp Pulse Resp B/P (MAP) Pulse Ox O2 Delivery O2 Flow Rate FiO2 06/18/17 13:22 36.5 82 16 122/62 (82) 96 Room Air 06/18/17 13:00 36.5 06/18/17 12:57 68 24 95 06/18/17 12:57 68 24 06/18/17 12:55 124/88 (94) 06/18/17 12:52 66 19 06/18/17 12:52 68 19 96 06/18/17 12:50 128/88 (101) 06/18/17 12:47 90 14 96 06/18/17 12:47 91 14 06/18/17 12:46 124/90 (95) 06/18/17 12:42 83 15 06/18/17 12:42 82 15 97 06/18/17 12:40 131/86 (101) 06/18/17 12:37 82 21 100 06/18/17 12:37 82 21 06/18/17 12:36 126/75 (101) 06/18/17 12:32 78 17 06/18/17 12:32 77 17 100 06/18/17 12:31 124/84 (100) 06/18/17 12:27 82 17 98 06/18/17 12:27 82 17 06/18/17 12:25 123/77 (96) 06/18/17 12:22 91 16 100 06/18/17 12:22 36.2 86 12 99/71 95 Diffusion Mask 5 06/18/17 12:22 94 16 06/18/17 12:21 110/86 (96) 06/18/17 12:17 88 19 97 06/18/17 12:17 90 19 06/18/17 12:16 129/77 (103) 06/18/17 12:12 83 18 06/18/17 12:12 82 18 95 06/18/17 12:11 99/71 (83) 06/18/17 08:59 37.1 96 20 135/82 (99) 96 Room Air Notes Mental Status: alert / awake / arousable, participated in evaluation Pt Amnestic to Procedure: Yes Nausea / Vomiting: adequately controlled Pain: adequately controlled Airway Patency, RR, SpO2: stable & adequate BP & HR: stable & adequate Hydration State: stable & adequate Anesthetic Complications: no major complications apparent
[2017-06-18 13:35] VITALS: BP 127/84; PULSE 66; O2SAT 97
== END | disposition home or self-care (01) ==
LOC: X.SURG 08:43
PROVIDERS: ATTEND Urology
DX: N20.0 Calculus of kidney (principal)